=== PATIENT | female | born 1975 | race Caucasian/White ===

== ENCOUNTER 2020-06-21 16:09 | Emergency (ER) | payer OTHER ==
--- NOTE | 2020-06-21 18:02 | EDM.PDOC ---
ED HPI GENERAL MEDICAL PROBLEM - General Chief Complaint: Lower Extremity Injury/Pain Stated Complaint: FELL PAIN IN ANKLE/FOOT Time Seen by Provider: 06/21/20 16:40 Source of Information: Reports: Patient, Family History Limitations: Reports: No Limitations - History of Present Illness INITIAL COMMENTS - FREE TEXT/NARRATIVE: Linda is a 45yo female patient that comes to ED for c/o right foot pain and left ankle pain following a fall down the last 2 stairs while carrying some laundry. She rolled her left ankle and then landed funny on her right foot. This happened about 15:30. rates her pain in the right foot as sharp 9/10 with movement and 7/10 if left alone. She rates her left ankle 3/10. She did not take any meds at home for the pain. Onset: Today Onset Date: 06/21/20 Onset Time: 15:30 Duration: Constant Location: Reports: Lower Extremity, Left (ankle), Lower Extremity, Right (foot) Quality: Reports: Sharp Severity: Severe Improves with: Reports: Rest Worsens with: Reports: Movement Context: Reports: Activity Associated Symptoms: Reports: No Other Symptoms Left Ankle Pain Score (Numeric/FACES): 4 Right Foot Pain Score (Numeric/FACES): 8 - Related Data Allergies Allergy/AdvReac Type Severity Reaction Status Date / Time No Known Allergies Allergy Verified 06/21/20 16:36 Home Meds: Home Meds FLUoxetine HCl [Fluoxetine HCl] 80 mg PO BEDTIME 06/21/20 [History] Famotidine 40 mg PO BID 06/21/20 [History] Gabapentin [Neurontin] 300 mg PO TID 06/21/20 [History] Losartan [Cozaar] 50 mg PO DAILY 06/21/20 [History] Multivitamin [Multi-Vitamin Daily] 1 tab PO DAILY 06/21/20 [History] Naproxen 250 mg PO ASDIRECTED PRN 06/21/20 [History] Omeprazole 20 mg PO DAILY 06/21/20 [History] Ondansetron [Zofran ODT] 4 mg PO ASDIRECTED PRN 06/21/20 [History] Prazosin [Minpress] 1 mg PO BEDTIME 06/21/20 [History] SUMAtriptan [Imitrex] 25 mg PO ASDIRECTED PRN 06/21/20 [History] hydrOXYzine HCL [Hydroxyzine HCl] 25 mg PO BID 06/21/20 [History] methocarbamoL [Methocarbamol] 2 tab PO QID 06/21/20 [History] Past Medical History HEENT History: Reports: Impaired Vision Cardiovascular History: Reports: Hypertension Musculoskeletal History: Reports: Fracture, Other (See Below) Other Musculoskeletal History: fx nose surgery Neurological History: Reports: Concussion, Other (See Below) Other Neuro History: TPI Psychiatric History: Reports: Anxiety, Bipolar, Depression, Eating Disorders, Panic Attack, PTSD, Suicide Attempt Oncologic (Cancer) History: Reports: Breast, Cervix Dermatologic History: Reports: Other (See Below) Other Dermatologic History: Multiple tatoos - Infectious Disease History Infectious Disease History: Reports: Chicken Pox - Past Surgical History HEENT Surgical History: Reports: Myringotomy w Tube(s), Tonsillectomy GI Surgical History: Reports: Bariatric Procedure Female Surgical History: Reports: Hysterectomy, Mastectomy Social & Family History - Tobacco Use Smoking Status *Q: Never Smoker Second Hand Smoke Exposure: No - Caffeine Use Caffeine Use: Reports: Coffee - Recreational Drug Use Recreational Drug Use: No Review of Systems - Review of Systems Review Of Systems: See Below Constitutional: Reports: No Symptoms Eyes: Reports: No Symptoms Ears: Reports: No Symptoms Nose: Reports: No Symptoms Mouth/Throat: Reports: No Symptoms Respiratory: Reports: No Symptoms Cardiovascular: Reports: No Symptoms GI/Abdominal: Reports: No Symptoms Genitourinary: Reports: No Symptoms Musculoskeletal: Reports: Foot Pain (right foot), Joint Pain (left ankle) Skin: Reports: No Symptoms Neurological: Reports: No Symptoms Psychiatric: Reports: No Symptoms ED EXAM, GENERAL - Physical Exam Exam: See Below Exam Limited By: No Limitations General Appearance: Alert, WD/WN, No Apparent Distress Respiratory/Chest: No Respiratory Distress, Normal Breath Sounds Cardiovascular: Normal Peripheral Pulses Peripheral Pulses: 2+: Dorsalis Pedis (L), Dorsalis Pedis (R) Extremities: Normal Capillary Refill, Other (There is swelling to the distal end of her 5th metatarsal. pedal pulses and sensation intact. ROM in right ankle limited due to foot pain (not ankle pain). The left ankle has no swelling or ecchymosis. Full ROM in left ankle. Pedal pulse and sensation intact. ). No: Pedal Edema, Slow Capillary Refill, Joint Swelling Neurological: Alert, Oriented, No Motor/Sensory Deficits, Sensory/Motor Deficit Psychiatric: Normal Affect Skin Exam: Warm, Dry, Intact Lymphatic: No Adenopathy ED TRAUMA EXTREMITY PROCEDURES - Splinting Right Lower Extremity Pre-Procedure NV Status: Normal Post-Procedure NV Status: Normal Splint Material: Other (ortho glass) Splint Design: Posterior Applied & Form Fitted By: Provider Provider Post-Splint Application NV Check: NV Status Normal Complications: No Course - Vital Signs Last Recorded V/S: Last Vital Signs Temp 99.5 F 06/21/20 16:42 Pulse 77 06/21/20 16:42 Resp 16 06/21/20 16:42 BP 136/93 H 06/21/20 16:42 Pulse Ox 98 06/21/20 16:42 - Orders/Labs/Meds Orders: Active Orders 24 hr Category Date Time Status Foot Comp Min 3V Rt [CR] Stat Exams 06/21/20 17:11 Taken - Radiology Interpretation Free Text/Narrative:: Displaced oblique fracture to right 5th metatarsal shaft. official radiology reading pending. Departure - Departure Time of Disposition: 18:00 Disposition: Home, Self-Care 01 Clinical Impression: Displaced fracture of metatarsal bone of right foot, Mild sprain of left ankle - Discharge Information *PRESCRIPTION DRUG MONITORING PROGRAM REVIEWED*: Not Applicable *COPY OF PRESCRIPTION DRUG MONITORING REPORT IN PATIENT EMILY: Not Applicable Instructions: Crutch Use, Adult, [id number], Metatarsal Fracture Rehab- [facility] Referrals: PCP,None [Primary Care Provider] - Forms: ED Department Discharge Additional Instructions: Non-weight bearing until you see orthopedics next week. Keep the splint on and dry. Use the crutches for mobilization. Take 650mg of tylenol (acetaminophen) and 600mg of ibuprofen every 6 hours. Take these meds with food. Keep your foot elevated as much as possible. You may ice it right over the splint. The orthopedic clinic will call you tomorrow or early next week for your appointment time. Call or return to ED with any worsening of pain or other concerns. Sepsis Event Note (ED) - Evaluation Sepsis Screening Result: No Definite Risk - Focused Exam Vital Signs: Vital Signs Temp Pulse Resp BP Pulse Ox 06/21/20 16:42 99.5 F 77 16 136/93 H 98 06/21/20 16:35 99.5 F 77 16 136/93 H 98 - My Orders Last 24 Hours: My Active Orders 06/21/20 17:11 Foot Comp Min 3V Rt [CR] Stat - Assessment/Plan Last 24 Hours: My Active Orders 06/21/20 17:11 Foot Comp Min 3V Rt [CR] Stat Plan: discharge home with splint and crutches/ non-weight bearing status. ibuprofen and tylenol for pain control. referral to orthopedics. Pt is agreeable to plan
--- NOTE | 2020-06-22 08:58 | CR ---
FOOT RIGHT 3 views CLINICAL HISTORY:Fall FINDINGS:Patient is a comminuted slightly displaced fracture of the fifth metatarsal and the distal third. There is a large calcaneal spur. There is mild tarsal spurring Impression: Fracture Right fifth metatarsal Large calcaneal spur
== END 2020-06-21 18:28 | disposition home or self-care (01) ==
LOC: JP.ED 16:09
DX: S92.351A Displaced fracture of fifth metatarsal bone, right foot, initial encounter for closed fracture (principal); S93.402A Sprain of unspecified ligament of left ankle, initial encounter; I10 Essential (primary) hypertension; F41.9 Anxiety disorder, unspecified; F31.9 Bipolar disorder, unspecified; Z88.5 Allergy status to narcotic agent; W10.9XXA Fall (on) (from) unspecified stairs and steps, initial encounter
CPT/HCPCS: 29515; 73630-26-RT; 73630-RT; 99283-25

== ENCOUNTER 2020-09-12 22:03 | Emergency (ER) | payer OTHER ==
[2020-09-12] MEDS ORDERED: Nitrofurantoin Monohydrate/Macrocrystalline 100 MG Cap PO ONE (22:55)
[2020-09-12] MEDS ORDERED: Cephalexin 250 MG Cap PO ONE (22:59)
--- NOTE | 2020-09-12 23:08 | EDM.PDOC ---
ED HPI GENERAL MEDICAL PROBLEM - General Chief Complaint: Genitourinary Problem Stated Complaint: ABD PAIN Time Seen by Provider: 09/12/20 22:45 Source of Information: Reports: Patient, Old Records, RN History Limitations: Reports: No Limitations - History of Present Illness INITIAL COMMENTS - FREE TEXT/NARRATIVE: 45 yo female with 2 days of dysuria and frequency. No fever or nausea. Last UTI many yrs ago. Is taking AZO for her sx's currently. Onset: Gradual Onset Date: 09/10/20 Duration: Day(s): (2), Getting Worse Location: Reports: Pelvis (urethral burning) Quality: Reports: Burning Severity: Moderate Improves with: Reports: Medication Worsens with: Reports: Other (time) Context: Reports: Other (See HPI) Associated Symptoms: Denies: Fever/Chills, Nausea/Vomiting Treatments COOK VEGETABLE: Reports: Other (see below) (AZO) Lower Abdomen Pain Score (Numeric/FACES): 7 - Related Data Allergies Allergy/AdvReac Type Severity Reaction Status Date / Time No Known Allergies Allergy Verified 09/12/20 22:31 Home Meds: Home Meds FLUoxetine HCl [Fluoxetine HCl] 80 mg PO BEDTIME 06/21/20 [History] Famotidine 40 mg PO BID 06/21/20 [History] Losartan [Cozaar] 50 mg PO DAILY 06/21/20 [History] Multivitamin [Multi-Vitamin Daily] 1 tab PO DAILY 06/21/20 [History] Naproxen 250 mg PO ASDIRECTED PRN 06/21/20 [History] Omeprazole 20 mg PO DAILY 06/21/20 [History] Ondansetron [Zofran ODT] 4 mg PO ASDIRECTED PRN 06/21/20 [History] Prazosin [Minpress] 1 mg PO BEDTIME 06/21/20 [History] SUMAtriptan [Imitrex] 25 mg PO ASDIRECTED PRN 06/21/20 [History] hydrOXYzine HCL [Hydroxyzine HCl] 25 mg PO BID 06/21/20 [History] cephALEXin [Cephalexin] 500 mg PO Q8H #20 tablet 09/12/20 [Rx] Past Medical History HEENT History: Reports: Impaired Vision Cardiovascular History: Reports: Hypertension Musculoskeletal History: Reports: Fracture, Other (See Below) Other Musculoskeletal History: fx nose surgery. RT 5th metatarsal FX Neurological History: Reports: Concussion, Other (See Below) Other Neuro History: TPI Psychiatric History: Reports: Anxiety, Bipolar, Depression, Eating Disorders, Panic Attack, PTSD, Suicide Attempt Oncologic (Cancer) History: Reports: Breast, Cervix Dermatologic History: Reports: Other (See Below) Other Dermatologic History: Multiple tatoos - Infectious Disease History Infectious Disease History: Reports: Chicken Pox - Past Surgical History HEENT Surgical History: Reports: Myringotomy w Tube(s), Tonsillectomy GI Surgical History: Reports: Bariatric Procedure Female Surgical History: Reports: Hysterectomy, Mastectomy Musculoskeletal Surgical History: Reports: None Social & Family History - Tobacco Use Tobacco Use Status *Q: Never Tobacco User - Caffeine Use Caffeine Use: Reports: Coffee - Recreational Drug Use Recreational Drug Use: No ED ROS GENERAL - Review of Systems Review Of Systems: See Below Constitutional: Denies: Fever, Chills GI/Abdominal: Denies: Nausea, Vomiting : Reports: Dysuria, Frequency, Urgency. Denies: Flank Pain, Hematuria Skin: Reports: No Symptoms Neurological: Reports: No Symptoms ED EXAM, RENAL/ - Physical Exam Exam: See Below Exam Limited By: No Limitations General Appearance: Alert, WD/WN, No Apparent Distress Eye Exam: Bilateral Eye: Normal Inspection Cardiovascular: Regular Rate, Rhythm, Tachycardia (slightly) GI/Abdominal: Soft, Non-Tender Back Exam: CVA Tenderness (L). No: CVA Tenderness (R) Extremities: Normal Inspection Neurological: Alert, Oriented, CN II-XII Intact, Normal Cognition, No Motor/Sensory Deficits Psychiatric: Normal Affect, Normal Mood Skin Exam: Warm, Dry, Intact, Normal Color, No Rash Course - Vital Signs Last Recorded V/S: Last Vital Signs Temp 36.2 C 09/12/20 22:41 Pulse 109 H 09/12/20 22:41 Resp 16 09/12/20 22:41 BP 157/106 H 09/12/20 22:41 Pulse Ox 96 09/12/20 22:41 - Orders/Labs/Meds Orders: Active Orders 24 hr Category Date Time Status CULTURE URINE [RM] Stat Lab 09/12/20 22:57 Received Labs: Laboratory Tests 09/12/20 Range/Units 22:33 Urine Color [place] A (YELLOW) Urine Appearance Slightly cloudy A (CLEAR) Urine pH 5.0 (5.0-8.0) Ur Specific [place] 1.010 (1.008-1.030) Urine Protein >=300 H (NEGATIVE) mg/dL Urine Glucose (UA) 250 H (NEGATIVE) mg/dL Urine Ketones 15 H (NEGATIVE) mg/dL Urine Occult Blood Small H (NEGATIVE) Urine Nitrite Positive H (NEGATIVE) Urine Bilirubin Moderate H (NEGATIVE) Urine Urobilinogen >=8.0 H (0.2-1.0) EU/dL Ur Leukocyte Esterase Large H (NEGATIVE) Urine RBC 10-20 H (0-5) Urine WBC 5-10 H (0-5) Ur Epithelial Cells Few Amorphous Sediment Not seen Urine Bacteria Few Urine Mucus Not seen Urine Other Meds: Medications Discontinued Medications Generic Name Dose Route Start Last Admin Trade Name Freq PRN Reason Stop Dose Admin Cephalexin 500 mg 09/12/20 22:59 Keflex PO 09/12/20 23:00 ONETIME ONE Nitrofurantoin Macrocrystals 100 mg 09/12/20 22:55 Macrobid PO 09/12/20 22:56 ONETIME ONE Departure - Departure Time of Disposition: 23:10 Disposition: Home, Self-Care 01 Condition: Fair Clinical Impression: UTI (urinary tract infection) Qualifiers: Urinary tract infection type: site unspecified Hematuria presence: without hematuria Qualified Code(s): N39.0 - Urinary tract infection, site not specified - Discharge Information *PRESCRIPTION DRUG MONITORING PROGRAM REVIEWED*: No *COPY OF PRESCRIPTION DRUG MONITORING REPORT IN PATIENT EMILY: No Prescriptions: cephALEXin [Cephalexin] 500 mg PO Q8H #20 tablet Instructions: Urinary Tract Infection, Adult, [id number] Referrals: PCP,None [Primary Care Provider] - Additional Instructions: Take cephalexin every 8 hrs. Your prescription went to [facility]. Continue AZO as needed. Take acetaminophen 1000 mg every 6 hrs for added relief. Drink ample fluids. Recheck in the clinic on Thursday, return if worse. Sepsis Event Note (ED) - Evaluation Sepsis Screening Result: No Definite Risk - Focused Exam Vital Signs: Vital Signs Temp Pulse Resp BP Pulse Ox 09/12/20 22:41 36.2 C 109 H 16 157/106 H 96 09/12/20 22:28 36.2 C 109 H 16 157/106 H 96 - My Orders Last 24 Hours: My Active Orders 09/12/20 22:57 CULTURE URINE [RM] Stat - Assessment/Plan Last 24 Hours: My Active Orders 09/12/20 22:57 CULTURE URINE [] Stat
== END 2020-09-12 23:16 | disposition home or self-care (01) ==
LOC: JP.ED 22:03
DX: N39.0 Urinary tract infection, site not specified (principal); I10 Essential (primary) hypertension; F31.9 Bipolar disorder, unspecified; F41.9 Anxiety disorder, unspecified; Z79.899 Other long term (current) drug therapy
CPT/HCPCS: 81001; 87086; 87088; 87186; 99283; A9270

== ENCOUNTER 2021-10-22 06:55 | Day surgery (SDC) | payer OTHER ==
[2021-10-22] MEDS ORDERED: Propofol 200 MG/20 ML SDV ONE (07:07)
[2021-10-22] MEDS ORDERED: fentaNYL 100 MCG/2 ML SDV ONE (07:07)
[2021-10-22] MEDS ORDERED: Midazolam 1 MG/ML 2 ML SDV ONE (07:07)
[2021-10-22] MEDS ORDERED: Sodium Chloride 0.9% 1,000 ML IV SCH (07:30)
--- NOTE | 2021-10-22 14:21 | OR ---
DATE OF PROCEDURE: 10/22/2021 SURGEON: William Valencia MD PROCEDURE: Colonoscopy. FINDINGS: 1. Diverticulosis. 2. Tortuous sigmoid colon. COMPLICATIONS: None. AIRFIELD [employer]ENCE GUARD: None. ANESTHESIA: MAC. PREOPERATIVE DIAGNOSIS: Screening colonoscopy. POSTOPERATIVE DIAGNOSIS: Screening colonoscopy. RISKS: Risks, benefits, alternatives, and limitations including, but not limited to infection, bleeding, perforation, false positives and false negatives were explained to the patient and wished to proceed. PROCEDURE IN DETAIL: The patient was placed in the left lateral decubitus position. Digital rectal exam was performed without abnormality. The scope was introduced atraumatically to the ileocecal valve. A photo was taken. The scope was brought back to the ascending, transverse, descending colon polyp, and retroflexed. No evidence of old or new blood. No masses. No polyps. The patient did have a tortuous sigmoid colon and diverticulosis which was mild to moderate, mostly concentrated in the sigmoid colon without evidence of diverticulitis or bleeding. Greater than 8 minutes was spent removing the scope. The prep was acceptable, approximately 90% of the luminal surface could be seen. The patient tolerated the procedure well. William Valencia MD /[id number]
== END 2021-10-22 09:55 | disposition home or self-care (01) ==
LOC: JP.SDS 06:55
PROVIDERS: ATTEND Surgery
DX: Z12.11 Encounter for screening for malignant neoplasm of colon (principal); K57.30 Diverticulosis of large intestine without perforation or abscess without bleeding; I10 Essential (primary) hypertension; K21.9 Gastro-esophageal reflux disease without esophagitis; F41.9 Anxiety disorder, unspecified; Z88.8 Allergy status to other drugs, medicaments and biological substances
CPT/HCPCS: 45378; J2250; J2704; J3010; J7030